=== PATIENT | male | born 2000 | race Hispanic/Latino ===

== ENCOUNTER 2025-01-24 07:37 | Emergency (ER) | payer SELFPAY ==
[~2025-01-24] VITALS: Ht 170.2 cm; Wt 115.7 kg
[2025-01-24] MEDS: ORPHENADRINE 60MG/2ML IM ONE (08:25)
[2025-01-24] MEDS: ketOROlac 30MG VIAL (30MG/ML) IM ONE (08:26)
--- NOTE | 2025-01-24 08:54 | ERN ---
General Chief Complaint: Back Pain or Injury Stated Complaint: lower back pain Time Seen by MD: 07:56 Source: patient, family History of Present Illness Initial Comments Patient is a 24-year-old male coming in to be evaluated for lower back pain. Patient states that he has been having this pain for a couple of days. He does not recall doing anything physical. But he states that the pain is exacerbated with flexion of the lower back.. Allergies: Coded Allergies: No Known Drug Allergies (Unverified Allergy, Unknown, 01/24/25) Past Medical History Past Medical History: No Pertinent History Past Surgical History: Other Surgical History Other: KNEE SURGERY ROS Dictation CONSTITUTIONAL: No chills, no fever, no weakness, no diaphoresis, no malaise. HEAD/FACE: No signs of trauma. EENT: No eye pain, no blurred vision, no tearing, no double vision, no ear pain, no ear discharge, no nose pain, no nasal congestion, no throat pain, no throat swelling, no mouth pain. RESPIRATORY: No cough, no orthopnea, no SOB, no stridor, no wheezing. CARDIOVASCULAR: No chest pain, no edema, no palpitations, no syncope. GASTROINTESTINAL/ABDOMINAL: No abdominal pain, no constipation, no diarrhea, no nausea, no vomiting. GENITOURINARY: No abnormal discharge, no dysuria, no frequent urination, no hematuria. No complaints of pain in the genitals. MUSCULOSKELETAL: back pain, no gout, no joint pain, no joint swelling, no muscle pain, no muscle stiffness, no neck pain. INTEGUMENTARY: No change in color, no change in hair/nails, no dryness, no lesion, no lumps, no rash. NEUROLOGICAL/PSYCH: No anxiety, not depressed, no emotional problem, no heada solomon, no numbness, no pre-existing deficit, no history of seizures, no tremors, no weakness. HEMATOLOGIC/LYMPHATIC: Not anemic, no history of blood clots, no apparent bleeding, no bruising, glands not swollen. All Systems Negative, Except as Noted. Physical Exam Physical Exam Dictation VITAL SIGNS: Reviewed. GENERAL APPEARANCE: Alert, oriented x3, no acute distress, obese. HEAD AND FACE: Non-traumatic. EYES: PERRL, pink conjunctivas, eyelid no trauma, anterior chamber clear. EARS: Pinnas intact and no signs of trauma or erythema. Ear canals clear and no discharge. TMs no erythema. NOSE: No discharge, no bleeding. OROPHARYNX: Mouth normal, teeth no caries, tongue pink. Pharynx clear, no erythema. Tonsils no exudates, no abscesses noted. Mucous membrane moist. NECK: Supple, non-tender, no thyromegaly, no masses, no JVD, no bruits. BREAST: Deferred. CHEST: No tenderness, no crepitus, no paradoxical movement, no retractions. LUNGS: Clear, well-ventilated, symmetric, no rales, no wheezing, no rhonchi, no stridor, good breath sounds bilaterally. HEART: Regular rate, regular rhythm, no murmur, no gallops. VASCULAR: No peripheral edema. ABDOMEN: Soft, positive bowel sounds, nondistended, no guarding, nontender, no rebound, no masses no hepatomegaly, no splenomegaly, no Nuñez's sign, no hernias. RECTAL: Deferred. GENITAL: Deferred. NEUROLOGICAL: Normal speech, gross motor function intact, gross sensory function intact. 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 EXTREMITIES: Nontender, full range of motion. SKIN: Color pink, dry, no turgor, no rash, no lacerations, no abrasions, no contusions. LYMPHATICS: Deferred. Results Laboratory and Microbiology Labs Reviewed?: Yes EKG/XRAY/US/CT/MRI X-RAY Comment Lumbar x-ray-NAD MDM MDM: Differential diagnosis: Back pain, back strain, lumbar nausea, Rationale: Tests considered and ordered secondary to shared decision making include: Previous outside records reviewed: Old ER visits. Risk of complication and/or morbidity or mortality of patient management: None Patient is a 24-year-old male coming in to be evaluated for back pain. X-ray did not disclose acute findings. Patient received antispasmodics anti- inflammatory states he has pain in early. Patient will be discharged in stable condition with a diagnosis of lumbar strain. I did advised him appropriate follow up with PCP in two days ED Course Orders Procedure Category Date Status Time Lumbar Spine 2-3vws RAD 01/24/25 Taken 08:10 Orphenadrine Citrate PHA 01/24/25 Complete (Norflex) 08:30 Ketorolac PHA 01/24/25 Complete Tromethamine 30mg/Ml 08:30 Current Medications Medications (Trade) Dose Ordered Sig/Teodoro Route PRN Reason Start Time Stop Time Status Last Admin Dose Admin Ketorolac Tromethamine (toRADol) 30 mg ONCE ONCE IM 01/24/25 08:30 01/24/25 08:31 DC 01/24/25 08:26 Orphenadrine Citrate (Norflex) 60 mg ONCE ONCE IM 01/24/25 08:30 01/24/25 08:31 DC 01/24/25 08:25 Vital Signs Date Time Temp Pulse Resp B/P (MAP) Pulse Ox O2 Delivery O2 Flow Rate FiO2 01/24/25 07:38 98.2 73 20 154/84 95 Room Air 0 DX & DISP Disposition: Discharge Departure Impression: Primary Impression: Lumbar strain Condition: Stable Scripts Methocarbamol (Robaxin) 750 Mg Tab 1 TAB PO BID for 5 Days, #10 TAB 0 Refills Prov: KELECHI STORY MD 01/24/25 Naproxen (Naproxen) 500 Mg Tablet 1 TAB PO BID for pain for 7 Days, #14 TAB 0 Refills Prov: KELECHI STORY MD 01/24/25 Additional Instructions: FOLLOW-UP WITH PRIMARY CARE PROVIDER IN 1 TO 2 DAYS. TAKE MEDICATIONS DIRECTED HERE IN THE EMERGENCY ROOM. OKAY TO CONTINUE HOME MEDICATIONS UNLESS OTHERWISE DISCUSSED DURING YOUR VISIT IN THE EMERGENCY ROOM TODAY. RETURN TO YOUR NEAREST EMERGENCY ROOM IF SYMPTOMS WORSEN OR IF THERE IS NO IMPROVEMENT. CALL 911 IF YOU NEED IMMEDIATE ASSISTANCE. TAKE TYLENOL [id number] NEEDED AND IF NO CONTRAINDICATIONS ARE PRESENT. INCREASE ORAL HYDRATION. A WOUND CULTURE OR URINE CULTURE WAS ORDERED HERE IN THE EMERGENCY ROOM DEPARTMENT PLEASE FOLLOW-UP WITH PRIMARY CARE PROVIDER AND ADVISE THEM TO GET REPEAT PORTS FROM OUR FACILITY. IF YOU HAD ANY BONITA WRAP/SPLINTS THAT WERE APPLIED HERE, PLEASE DO NOT REMOVE THEM UNTIL YOU SEE YOUR PRIMARY CARE OR SPECIALTY. Referrals: Referrals: SELF,REFERRAL (PCP) BRIANDA ABDUL MD Time of Disposition: 09:32 KELECHI STORY MD January 24, 2025 08:54
[2025-01-24] MEDS ORDERED: NAPR-1194 PO (09:33)
[2025-01-24] MEDS ORDERED: METH-662 PO (09:33)
[2025-01-24 09:36] VITALS: BP 147/73; PULSE 72; RESP 18; TEMP 98.2; O2SAT 96
--- NOTE | 2025-01-24 11:57 | HMCIMG ---
LUMBAR SPINE 2-3VWS HISTORY: Back pain COMPARISON: None FINDINGS: 3 images of lumbar spine were obtained. There is straightening of normal lordotic curvature which may be related to muscle spasm or positioning. No loss of vertebral height is seen. No fracture or dislocation is seen. IMPRESSION: 1. No fracture is seen.
== END 2025-01-24 09:37 | disposition home or self-care (01) ==
LOC: EDH 07:37
DX: S39.012A Strain of muscle, fascia and tendon of lower back, initial encounter (principal); Z98.890 Other specified postprocedural states; X58.XXXA Exposure to other specified factors, initial encounter; Y93.89 Activity, other specified; Y92.89 Other specified places as the place of occurrence of the external cause; Y99.8 Other external cause status
CPT/HCPCS: 99284; 72100; 96372 ×2; J1885; J2360